=== PATIENT | female | born 1950 | race Caucasian/White ===

== ENCOUNTER 2020-12-17 20:20 | Emergency (ER) | payer MEDICARE, BC ==
[~2020-12-17] VITALS: Ht 175.3 cm; Wt 117.2 kg
[2020-12-17] MEDS ORDERED: MOBI15TA PO (20:44)
[2020-12-17] MEDS ORDERED: BUPR150T12 PO (20:45)
[2020-12-17] MEDS ORDERED: KETOROLAC 30 MG/ML 1ML VIAL IV ONE (22:00)
[2020-12-17] MEDS ORDERED: ONDANSETRON 4MG/2ML VIAL IV ONE (22:00)
[2020-12-17] MEDS ORDERED: NS 1,000 ML IV ONE (22:00)
[2020-12-17 22:06] LABS: BASO # 0.1 10^3/uL (0.0-0.2); BASO % 0.4 % (0.0-1.0); EOS # 0.1 10^3/uL (0.0-0.5); EOS % 0.4 % (0.0-3.0); HEMOGLOBIN 15.7 g/dl (12.0-15.5); LYMPH # 1.3 10^3/uL (1.5-5.0); MEAN CORPUSCULAR HEMOGLOBIN 30.7 pg (27.0-33.0); MEAN CORPUSCULAR VOLUME 95.9 fl (80.0-96.0); MONO # 0.9 10^3/uL (0.0-0.8); MONO % 5.9 % (2.0-8.0); NEUTROPHILS # 12.3 10^3/uL (1.5-8.5); NEUTROPHILS % 83.9 % (36.0-66.0); PLATELET COUNT, AUTOMATED 297 10^3/uL (150-450); RED BLOOD COUNT 5.11 10^6/uL (4.00-5.40); WHITE BLOOD COUNT 14.7 10^3/uL (4.0-10.0)
--- NOTE | 2020-12-17 23:09 | REPVR ---
PROCEDURE INFORMATION: Exam: CT Abdomen And Pelvis Without Contrast Exam date and time: 12/17/2020 10:26 PM Age: 70 years old Clinical indication: Abdominal pain; Localized; Left; Additional info: Left flank pain TECHNIQUE: Imaging protocol: Computed tomography of the abdomen and pelvis without contrast. Radiation optimization: All CT scans at this facility use at least one of these dose optimization techniques: automated exposure control; mA and/or kV adjustment per patient size (includes targeted exams where dose is matched to clinical indication); or iterative reconstruction. COMPARISON: No relevant prior studies available. FINDINGS: Liver: Normal. No mass. Gallbladder and bile ducts: Status post cholecystectomy. Pancreas: Normal. No ductal dilation. Spleen: Normal. No splenomegaly. Adrenal glands: Normal. No mass. Kidneys and ureters: Minimal nonobstructing left renal calculus in the lower pole. Left perinephric stranding and infiltration with mild left hydronephrosis and minimal left hydroureter with periureteral edema which extends to the left UVJ. There is a distal left UVJ calculus measuring 1.5 x 3 mm. Stomach and bowel: There is colonic diverticulosis without evidence of diverticulitis. Appendix: A normal short appendix or appendiceal stump is seen. Intraperitoneal space: Unremarkable. No free air. No significant fluid collection. Vasculature: There is minimal atherosclerotic calcification of the abdominal aorta. Lymph nodes: Unremarkable. No enlarged lymph nodes. Urinary bladder: Unremarkable as visualized. Reproductive: Unremarkable as visualized. Bones/joints: Decreased height and/or wedge configuration of lower thoracic segments cephalad to T11. Soft tissues: Minimal fat filled umbilical hernia. IMPRESSION: 1. Calculus in the distal left UVJ measuring 1.5 x 3 mm with secondary obstructive uropathy of the left upper tract. 2. Minimal nonobstructing left renal calculus in the lower pole. 3. Status post cholecystectomy. 4. Colonic diverticulosis without diverticulitis. Electronically signed by: Joshua Reyes On 12/17/2020 23:09:29 PM
[2020-12-17 23:52] LABS: ALBUMIN 3.9 GM/DL (3.2-5.2); ALT/SGPT 32 U/L (12-78); BILIRUBIN,DIRECT < 0.1 MG/DL (0.0-0.2); BILIRUBIN,TOTAL 0.4 MG/DL (0.2-1.0); LIPASE 146 U/L (73-393); TOTAL PROTEIN 6.8 GM/DL (6.4-8.2)
[2020-12-18] MEDS ORDERED: HYDR-3713 PO ×3 (00:08→00:31)
[2020-12-18] MEDS ORDERED: FLOM0.4C39 PO (00:08)
[2020-12-18] MEDS ORDERED: BACT800T5 PO (00:08)
[2020-12-18] MEDS ORDERED: ONDA4TAB6 PO (00:09)
[2020-12-18 00:12] VITALS: BP 154/86
[2020-12-18] MEDS ORDERED: ONDANSETRON 4 MG ORAL DISINTEGRATING TAB PO ONE (00:15)
[2020-12-18] MEDS ORDERED: NORCO 5/325MG TABLET (BULK FOR ED) PO ONE (00:15)
== END 2020-12-18 00:38 | disposition home or self-care (01) ==
LOC: M ED 20:20
DX: N10 Acute pyelonephritis (principal); N20.1 Calculus of ureter; Z79.899 Other long term (current) drug therapy; Z88.1 Allergy status to other antibiotic agents
CPT/HCPCS: 74176; 80047; 80076; 81001; 83690; 85025; 87086; 96361; 96374; 96375; 99284; J1885; J2405; Q0162